=== PATIENT | male | born 1980 | race Two or more races ===

== ENCOUNTER 2025-01-21 23:33 | Emergency (ER) | payer OTHER ==
[~2025-01-21] VITALS: Ht 175.3 cm; Wt 83.9 kg
[2025-01-22] MEDS ORDERED: KETOROLAC TROMETHAMINE INJ 30 MG/ML VIAL ONE (00:41)
[2025-01-22] MEDS: KETOROLAC TROMETHAMINE INJ 30 MG/ML VIAL IV ONE (00:43)
[2025-01-22] MEDS: IV NS 0.9% 1,000 ML IV ONE (00:43)
[2025-01-22 00:44] LABS: PLATELET COUNT (AUTO) 255 K/uL (150-450); RED BLOOD CELL COUNT(AUTO) 4.94 MIL/uL (4.5-6.0); RED CELL DISTRIBUTION WIDTH 14.6 % (11.5-15.0); WHITE BLOOD COUNT (AUTO) 8.4 K/uL (4.3-11.0)
[2025-01-22 00:48] LABS: APPEARANCE,URINE CLEAR (CLEAR); BLOOD, URINE NEGATIVE Ery/uL (NEGATIVE); LEUKOCYTE ESTERASE ,URINE NEGATIVE (NEGATIVE); NITRITE, URINE NEGATIVE (NEGATIVE); UGLUCOSE NEGATIVE (NEGATIVE)
[2025-01-22 00:51] LABS: CALCIUM, SERUM 8.8 mg/dL (8.5-10.1); CREATININE 0.8 mg/dL (0.6-1.3); SODIUM SERUM 139.0 mmol/L (136-145); UREA NITROGEN, BLOOD 11.0 mg/dL (7-18)
[2025-01-22 01:06] LABS: ASPARTATE AMINOTRANSFERASE 29.0 U/L (15-37); NT-PRO BNP 12.0 pg/mL (0-125); TOTAL PROTEIN, SERUM 8.0 g/dL (6.4-8.2)
[2025-01-22 01:08] LABS: AMPHETAMINE, URINE NEGATIVE (NEGATIVE); BARBITURATE, URINE NEGATIVE (NEGATIVE); BENZODIAZEPINE, URINE NEGATIVE (NEGATIVE); CANNABINOID, URINE NEGATIVE (NEGATIVE); COCCAINE, URINE NEGATIVE (NEGATIVE); OPIATE, URINE NEGATIVE (NEGATIVE)
[2025-01-22] MEDS ORDERED: CLON0.1T PO (03:03)
[2025-01-22 03:20] VITALS: BP 154/79; TEMP 98.5; O2SAT 98
== END 2025-01-22 03:21 | disposition home or self-care (01) ==
LOC: ER 23:35
DX: R10.9 Unspecified abdominal pain (principal); R11.2 Nausea with vomiting, unspecified; R06.02 Shortness of breath; Z79.899 Other long term (current) drug therapy
CPT/HCPCS: 99285; 74176; 96374; 71045; 96361; 93005; 85025; 83690; 36415; 80053; 84484; 83880; 80307; 81003; J1885; J7030